=== PATIENT | male | born 1970 | race Caucasian/White ===

== ENCOUNTER 2019-12-05 12:58 | Emergency (ER) | payer MEDICAID ==
[~2019-12-05] VITALS: Ht 167.6 cm; Wt 62.0 kg
[~2019-12-05 12:58] MED LIST: NO MEDS
[2019-12-05] MEDS ORDERED: ACETAMINOPHEN 500MG TABLET PO ONE (14:45)
[2019-12-05] MEDS ORDERED: BACITRACIN ZINC OINT UDPKT TOP ONE (14:45)
[2019-12-05 15:00] VITALS: BP 122/78
== END 2019-12-05 15:00 | disposition home or self-care (01) ==
LOC: ER 13:26
DX: L03.012 Cellulitis of left finger (principal)
CPT/HCPCS: 99281